=== PATIENT | female | born 1970 | race Caucasian/White ===

== ENCOUNTER 2017-05-11 17:04 | Emergency (ER) | payer SELFPAY ==
--- NOTE | 2017-05-11 17:11 | EDM.PDOC ---
ED HPI GENERAL MEDICAL PROBLEM - General Chief Complaint: Upper Extremity Injury/Pain Stated Complaint: POSSIBLE BROKEN LT FINGER Time Seen by Provider: 05/11/17 17:08 - History of Present Illness INITIAL COMMENTS - FREE TEXT/NARRATIVE: HISTORY AND PHYSICAL: History of present illness: Patient 46-year-old white female presents with concerned acute left hand injury that occurred when she fell prior to arrival she has what appears to be a gross deformity involving the fourth digit of her left hand she sustained some other minor abrasions to her extremity otherwise denies head or neck pain or trauma chest or abdominal pain or trauma or other concern Review of systems: As per history of present illness and below otherwise all systems reviewed and negative. Past medical history: As per history of present illness and as reviewed below otherwise noncontributory. Surgical history: As per history of present illness and as reviewed below otherwise noncontributory. Social history: No reported history of drug or alcohol abuse. Family history: As per history of present illness and as reviewed below otherwise noncontributory. Physical exam: HEENT: Atraumatic, normocephalic, pupils reactive, negative for conjunctival pallor or scleral icterus, mucous membranes moist, throat clear, neck supple, nontender, trachea midline. Lungs: Clear to auscultation, breath sounds equal bilaterally, chest nontender. Heart: S1S2, regular, negative for clicks, rubs, or JVD. Abdomen: Soft, nondistended, nontender. Negative for masses or hepatosplenomegaly. Negative for costovertebral tenderness. Pelvis: Stable nontender. Genitourinary: Deferred. Rectal: Deferred. Extremities: Patient has multiple abrasions to her left hand and a ulnar deviation of the fourth digit of her left hand with limited range of motion secondary to pain Neuro: Awake, alert, oriented. Cranial nerves II through XII unremarkable. Cerebellum unremarkable. Motor and sensory unremarkable throughout. Exam nonfocal. Diagnostics: X-ray left hand Therapeutics: To be determined Impression: #1 observation status post fall #2 acute left hand injury Definitive disposition and diagnosis as appropriate pending reevaluation and review of above. 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: Musculoskeletal History: Reports: Fracture Neurological History: Reports: Brain Injury Psychiatric History: Reports: Anxiety, Depression - Infectious Disease History Infectious Disease History: Reports: Chicken Pox - Past Surgical History Female Surgical History: Reports: Breast Biopsy, Hysterectomy, Tubal Ligation Social & Family History - Family History Family Medical History: Noncontributory - Tobacco Use Smoking Status *Q: Never Smoker Second Hand Smoke Exposure: No - Caffeine Use Caffeine Use: Reports: None - Alcohol Use Days Per Week of Alcohol Use: 0 Number of Drinks Per Day: 0 Total Drinks Per Week: 0 - Recreational Drug Use Recreational Drug Use: No Drug Use in Last 12 Months: No Review of Systems - Review of Systems Review Of Systems: ROS reveals no pertinent complaints other than HPI. ED EXAM, GENERAL - Physical Exam Exam: See Below (See dictation) Course - Vital Signs Text/Narrative:: Patient's fracture dislocation that was noted on initial x-ray was reduced and splinted status post reduction there is markedly improved alignment neurovascular exams unremarkable I discussed with patient the need for follow- up with the hand surgery [facility] she will be given referral and to call for appointment splint as directed hydrocodone as prescribed and return as needed as discussed I discussed with her also that my impression is with the greater than 25% involvement of the articular surface that this may likely need surgery Last Recorded V/S: Last Vital Signs Temp 36.1 C 05/11/17 17:15 Pulse 100 05/11/17 17:15 Resp 20 05/11/17 17:15 BP 139/87 05/11/17 17:15 Pulse Ox 98 05/11/17 17:15 - Orders/Labs/Meds Orders: Active Orders 24 hr Category Date Time Status Hand 2V Lt [CR] Stat Exams 05/11/17 17:09 Taken Hand 2V Lt [CR] Stat Exams 05/11/17 17:46 Taken Meds: Medications Discontinued Medications Generic Name Dose Route Start Last Admin Trade Name Freq PRN Reason Stop Dose Admin Hydromorphone HCl 1 mg 05/11/17 17:45 Dilaudid IM 05/11/17 17:46 ONETIME ONE Ondansetron HCl 4 mg 05/11/17 17:45 Zofran Odt PO 05/11/17 17:46 ONETIME ONE Departure - Departure Time of Disposition: 18:04 Disposition: Home, Self-Care 01 Condition: Good Clinical Impression: Hand fracture - Discharge Information Forms: ED Department Discharge - My Orders Last 24 Hours: My Active Orders 05/11/17 17:09 Hand 2V Lt [CR] Stat 05/11/17 17:46 Hand 2V Lt [CR] Stat - Assessment/Plan Last 24 Hours: My Active Orders 05/11/17 17:09 Hand 2V Lt [CR] Stat 05/11/17 17:46 Hand 2V Lt [CR] Stat
[2017-05-11 17:21] VITALS: BP 139/87
[2017-05-11] MEDS ORDERED: HYDROmorphone 2 MG/ML Syringe IM ONE (17:45)
[2017-05-11] MEDS ORDERED: Ondansetron 4 MG Tab.DIS PO ONE (17:45)
--- NOTE | 2017-05-12 15:35 | CR ---
EXAM DATE: 05/11/17 PATIENT'S AGE: 46 Patient: LATOYA HAYDEN Facility: [place], [place] Site . Site : 1970 Study: XRay Extremity Left HAND [id number]/28/2017 5:32:56 PM Ordering Physician: Alejandro Mercer Final Report: Indication: Trauma and pain Technique: Left hand 3 views Comparison: None Findings/Impression: Bones: Acute fracture is present in the base of the proximal phalanx in the 4th finger. The fracture is markedly angulated and may be dislocated at the joint. No other osseous abnormality. Joint spaces: Unremarkable. Soft tissues: Unremarkable. Dictated by Alexy Mora MD @ May 11 2017 6:08PM (Electronic Signature) Report Signed by Proxy. ANNABEL
--- NOTE | 2017-05-12 15:36 | CR ---
EXAM DATE: 05/11/17 PATIENT'S AGE: 46 Patient: LATOYA HAYDEN Facility: [place], [place] Site . Site : 1970 Study: XRay Extremity Left HAND [id number]/28/2017 6:02:03 PM Ordering Physician: Alejandro Mercer Final Report: Indication: Post reduction. Technique: Left hand 2 views. Comparison: May 11, 2017 at 1721 hours. Impression: The fracture has been successfully reduced in the base of the proximal phalanx in the 4th finger. Alignment is near anatomic. No new abnormality. Dictated by Alexy Mora MD @ May 11 2017 6:09PM (Electronic Signature) Report Signed by Proxy. ANNABEL
== END 2017-05-11 18:25 | disposition home or self-care (01) ==
LOC: MW.ED 17:04
DX: S62.615A Displaced fracture of proximal phalanx of left ring finger, initial encounter for closed fracture (principal); F32.9 Major depressive disorder, single episode, unspecified; Z88.0 Allergy status to penicillin; W19.XXXA Unspecified fall, initial encounter
CPT/HCPCS: 29130; 73120; 96372; 99283; A4566; A9270; J1170; 99284

== ENCOUNTER 2019-07-31 17:04 | Emergency (ER) | payer SELFPAY ==
[2019-07-31 17:41] VITALS: BP 141/96; PULSE 112
--- NOTE | 2019-07-31 17:57 | EDM.PDOC ---
ED HPI GENERAL MEDICAL PROBLEM - General Chief Complaint: Respiratory Problem Stated Complaint: FEVER Time Seen by Provider: 07/31/19 17:57 Source of Information: Reports: Patient History Limitations: Reports: No Limitations - History of Present Illness INITIAL COMMENTS - FREE TEXT/NARRATIVE: HISTORY AND PHYSICAL: History of present illness: Patient is a 48-year-old female presents to the ED with concern of cough and shortness of breath x 3 days. She reports subjective fevers and sore throat. Denies chest pain, nausea, vomiting, diarrhea, abdominal pain. Patient denies recent travel or known sick contacts. 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 Review of systems: As per history of present illness and below otherwise all systems reviewed and negative. Past medical history: As per history of present illness and as reviewed below otherwise noncontributory. Surgical history: As per history of present illness and as reviewed below otherwise noncontributory. Social history: No reported history of drug or alcohol abuse. Family history: As per history of present illness and as reviewed below otherwise noncontributory. Physical exam: General: Patient sitting comfortably in no acute distress and nontoxic appearing HEENT: Atraumatic, normocephalic, pupils reactive, negative for conjunctival pallor or scleral icterus, mucous membranes moist, throat clear, neck supple, nontender, trachea midline. No meningeal signs. Lungs: Clear to auscultation, breath sounds equal bilaterally, chest nontender. Heart: S1S2, regular, negative for clicks, rubs, or overt murmur. Abdomen: Soft, nondistended, nontender. Negative for masses or hepatosplenomegaly. Negative for costovertebral tenderness. No rigidity, rebound , guarding. Pelvis: Stable nontender. Genitourinary: Deferred. Rectal: Deferred. Extremities: Atraumatic, negative for cords or calf pain. Neurovascular unremarkable. Neuro: Awake, alert, oriented. Cranial nerves II through XII unremarkable. Cerebellum unremarkable. Motor and sensory unremarkable throughout. Exam nonfocal. Notes: Diagnostics: Influenza, rapid strep, COVID-19 Therapeutics: none Prescriptions: Ventolin inhaler Impression: URI Plan: Please self quarantine at home until you receive results of your COVID-19 testing Use inhaler as instructed Follow up with primary care provider Return to ED as needed as discussed Definitive disposition and diagnosis as appropriate pending reevaluation and review of above. 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: Musculoskeletal History: Reports: Fracture Other Musculoskeletal History: bilateral broken elbows Neurological History: Reports: Brain Injury Psychiatric History: Reports: Anxiety, Depression - Infectious Disease History Infectious Disease History: Reports: None - Past Surgical History HEENT Surgical History: Reports: Adenoidectomy, Tonsillectomy GI Surgical History: Reports: Appendectomy, Cholecystectomy Female Surgical History: Reports: Breast Biopsy, Hysterectomy, Tubal Ligation Musculoskeletal Surgical History: Reports: Shoulder Surgery, Other (See Below) Other Musculoskeletal Surgeries/Procedures:: Bilateral knee surgery Social & Family History - Family History Family Medical History: Noncontributory - Tobacco Use Smoking Status *Q: Never Smoker - Caffeine Use Caffeine Use: Reports: None Caffeine Use Comment: 2 cups/day - Recreational Drug Use Recreational Drug Use: No ED ROS GENERAL - Review of Systems Review Of Systems: Comprehensive ROS is negative, except as noted in HPI. ED EXAM, GENERAL - Physical Exam Exam: See Below (see dictation) Course - Vital Signs Last Recorded V/S: Last Vital Signs Temp 97.7 F 07/31/19 17:29 Pulse 112 H 07/31/19 17:29 Resp 18 07/31/19 17:29 BP 141/96 H 07/31/19 17:29 Pulse Ox 98 07/31/19 17:29 - Orders/Labs/Meds Orders: Active Orders 24 hr Category Date Time Status CORONAVIRUS (COVID-19) PCR [MREF] Stat Lab 07/31/19 17:15 Received CULTURE STREP A CONFIRMATION [RM] Stat Lab 07/31/19 17:15 Results STREP SCRN A RAPID W CULT CONF [RM] Stat Lab 07/31/19 17:15 Results Isolation [COMM] Routine Oth 07/31/19 17:45 Active Departure - Departure Time of Disposition: 18:25 Disposition: Home, Self-Care 01 Condition: Good Clinical Impression: URI (upper respiratory infection) - Discharge Information Prescriptions: Albuterol [Ventolin HFA] 1 puff INH Q4H #1 inhaler Instructions: Upper Respiratory Infection, Adult, [id number] Referrals: PCP,None [Primary Care Provider] - Forms: ED Department Discharge Additional Instructions: The following information is given to patients seen in the emergency department who are being discharged to home. This information is to outline your options for follow-up care. We provide all patients seen in our emergency department with a follow-up referral. The need for follow-up, as well as the timing and circumstances, are variable depending upon the specifics of your emergency department visit. If you don't have a primary care physician on staff, we will provide you with a referral. We always advise you to contact your personal physician following an emergency department visit to inform them of the circumstance of the visit and for follow-up with them and/or the need for any referrals to a consulting specialist. The emergency department will also refer you to a specialist when appropriate. This referral assures that you have the opportunity for follow-up care with a specialist. All of these measure are taken in an effort to provide you with optimal care, which includes your follow-up. Under all circumstances we always encourage you to contact your private physician who remains a resource for coordinating your care. When calling for follow-up care, please make the office aware that this follow-up is from your recent emergency room visit. If for any reason you are refused follow-up, please contact the [facility] Emergency Department at and asked to speak to the emergency department charge nurse. [facility] [address] [place] [address] [id number] [address] [id number] Please self quarantine at home until you receive results of your COVID-19 testing Use inhaler as instructed Follow up with primary care provider Return to ED as needed as discussed Sepsis Event Note - Evaluation Sepsis Screening Result: Possible Sepsis Risk - Focused Exam Date Exam was Performed: 08/01/19 Time Exam was Performed: 10:26 - My Orders Last 24 Hours: My Active Orders 07/31/19 17:15 CORONAVIRUS (COVID-19) PCR [MREF] Stat CULTURE STREP A CONFIRMATION [RM] Stat STREP SCRN A RAPID W CULT CONF [RM] Stat 07/31/19 17:45 Isolation [COMM] Routine - Assessment/Plan Last 24 Hours: My Active Orders 07/31/19 17:15 CORONAVIRUS (COVID-19) PCR [MREF] Stat CULTURE STREP A CONFIRMATION [RM] Stat STREP SCRN A RAPID W CULT CONF [RM] Stat 07/31/19 17:45 Isolation [COMM] Routine
--- NOTE | 2019-07-31 18:06 | CR ---
Chest: Portable view of the chest were obtained. Comparison: Prior chest x-ray of 07/30/19. Heart size and mediastinum are normal. Lungs are clear with no acute parenchymal change. Surgical clips are noted from prior cholecystectomy. Old left clavicle fracture is seen which appears healed. Impression: 1. Nothing acute is appreciated on portable chest x-ray. Diagnostic code #2 Study was dictated in MDT
== END 2019-07-31 19:12 | disposition home or self-care (01) ==
LOC: MW.ED 17:04
DX: J06.9 Acute upper respiratory infection, unspecified (principal); Z88.0 Allergy status to penicillin
CPT/HCPCS: 71045; 87081; 87804; 87880; 99283; U0001

== ENCOUNTER 2019-08-06 15:45 | Emergency (ER) | payer SELFPAY ==
[2019-08-06] MEDS ORDERED: methylPREDNISolone Sodium Succinate 125 MG/2 ML SDV IM ONE (16:17)
[2019-08-06] MEDS ORDERED: Albuterol/Ipratropium 3.0-0.5 MG/3 ML Neb Soln NEB ONE (16:17)
--- NOTE | 2019-08-06 16:23 | EDM.PDOC ---
ED HPI GENERAL MEDICAL PROBLEM - General Chief Complaint: Respiratory Problem Stated Complaint: breathing problem Time Seen by Provider: 08/06/19 15:46 Source of Information: Reports: Patient History Limitations: Reports: No Limitations - History of Present Illness INITIAL COMMENTS - FREE TEXT/NARRATIVE: HISTORY AND PHYSICAL: History of present illness: Patient is a 48-year-old female who presents to the ED today with concern of feeling short of breath over the past 2 to 3 days. Patient states she was seen in the ED a few days ago and was tested for influenza, COV-ID 19, and strep which were all negative. Patient states at that time she had a cough and sore throat but states that now over the past 2 days she feels more short of breath. Patient states she feels as if she needs to take a big deep breath in in order to help her symptoms. Patient states she did used to smoke until 3 days ago due to feeling short of breath. Patient has a history of tubal ligation. Patient denies fever, chills, chest pain. Denies headache, neck stiff ness, change in vision, syncope, or near syncope. Denies nausea, vomiting, abdominal pain, diarrhea, constipation, or dysuria. Has not noted any blood in urine or stool. Patient has been eating and drinking appropriately. Review of systems: As per history of present illness and below otherwise all systems reviewed and negative. Past medical history: As per history of present illness and as reviewed below otherwise noncontributory. Surgical history: As per history of present illness and as reviewed below otherwise noncontributory. Social history: See social history for further information Family history: As per history of present illness and as reviewed below otherwise noncontributory. Physical exam: General: Patient is alert, oriented, and in no acute distress. Patient sitting comfortably on exam table. HEENT: Atraumatic, normocephalic, pupils equal and reactive bilaterally, negative for conjunctival pallor or scleral icterus, mucous membranes moist, TMs normal bilaterally, throat clear, neck supple, nontender, trachea midline. No drooling or trismus noted. No meningeal signs. No hot potato voice noted. Lungs: Patient speaking clearly without breathlessness, no wheezing or stridor, no accessory muscle use or respiratory distress. Auscultation deferred due to current COV-ID 19 outbreak. Heart: Auscultation deferred due to current COV-ID 19 outbreak. Abdomen: Soft, nondistended, nontender. Negative for masses or hepatosplenomegaly. Negative for costovertebral tenderness. Pelvis: Stable nontender. Genitourinary: Deferred. Rectal: Deferred. Skin: Intact, warm, dry. No lesions or rashes noted. Extremities: Atraumatic, negative for cords or calf pain. Neurovascular unremarkable. Neuro: Awake, alert, oriented. Cranial nerves II through XII unremarkable. Cerebellum unremarkable. Motor and sensory unremarkable throughout. Exam nonfocal. Notes: Ambulatory sats 99%. Tachycardia improved with 2L of NS. Patient states she does have inhaler for use at home and states treatment today helped improve symptoms. Discussed full precautions and need for complete self isolation until she has received a call about COV-ID 19 testing results. Voices understanding and is agreeable to plan of care. Denies any further questions or concerns at this time. Diagnostics: EKG, CBC, CMP, UA, lipase, troponin, chest x-ray, ddimer, ang chest ct Therapeutics: Duoneb, Solumedrol Prescription: Azithromycin Impression: Atypical pneumonia r/o COV-ID 19 Plan: 1. Self isolate until you have a call back in regards to COV-ID 19. Use at home inhaler as prescribed to you as needed for symptomatic relief. 2. Follow-up with a primary care provider as discussed. Return to the ED as needed and as discussed. Definitive disposition and diagnosis as appropriate pending reevaluation and review of above. 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: Musculoskeletal History: Reports: Fracture Other Musculoskeletal History: bilateral broken elbows Neurological History: Reports: Brain Injury Psychiatric History: Reports: Anxiety, Depression - Infectious Disease History Infectious Disease History: Reports: Chicken Pox - Past Surgical History HEENT Surgical History: Reports: Adenoidectomy, Tonsillectomy GI Surgical History: Reports: Appendectomy, Cholecystectomy Female Surgical History: Reports: Breast Biopsy, Hysterectomy, Tubal Ligation Musculoskeletal Surgical History: Reports: Shoulder Surgery, Other (See Below) Other Musculoskeletal Surgeries/Procedures:: Bilateral knee surgery Social & Family History - Family History Family Medical History: Noncontributory - Tobacco Use Smoking Status *Q: Former Smoker Used Tobacco, but Quit: Yes Month/Year Tobacco Last Used: 2019 - Caffeine Use Caffeine Use: Reports: None Caffeine Use Comment: 2 cups/day - Recreational Drug Use Recreational Drug Use: No ED ROS GENERAL - Review of Systems Review Of Systems: Comprehensive ROS is negative, except as noted in HPI. ED EXAM, GENERAL - Physical Exam Exam: See Below (see dictation) Course - Vital Signs Last Recorded V/S: Last Vital Signs Temp 98.4 F 08/06/19 18:21 Pulse 107 H 08/06/19 18:21 Resp 18 08/06/19 18:21 BP 132/95 H 08/06/19 18:21 Pulse Ox 99 08/06/19 18:21 - Orders/Labs/Meds Orders: Active Orders 24 hr Category Date Time Status EKG Documentation Completion [RC] STAT Care 08/06/19 16:16 Active RT Aerosol Therapy [RC] ASDIRECTED Care 08/06/19 16:17 Active CORONAVIRUS COVID-19 PCR PHL [MREF] Stat Lab 08/06/19 19:13 Ordered Labs: Laboratory Tests 08/06/19 08/06/19 08/06/19 Range/Units 16:32 16:32 16:32 WBC 8.03 (4.0-11.0) K/uL RBC 4.28 L (4.30-5.90) M/uL Hgb 14.0 (12.0-16.0) g/dL Hct 41.2 (36.0-46.0) % MCV 96.3 (80.0-98.0) fL MCH 32.7 H (27.0-32.0) pg MCHC 34.0 (31.0-37.0) g/dL RDW Std Deviation 55.0 (28.0-62.0) fl RDW Coeff of Valorie 16 H (11.0-15.0) % Plt Count 192 (150-400) K/uL MPV 9.60 (7.40-12.00) fL Neut % (Auto) 63.5 (48.0-80.0) % Lymph % (Auto) 22.5 (16.0-40.0) % [place] % (Auto) 13.8 (0.0-15.0) % Eos % (Auto) 0.0 (0.0-7.0) % Baso % (Auto) 0.2 (0.0-1.5) % Neut # (Auto) 5.1 (1.4-5.7) K/uL Lymph # (Auto) 1.8 (0.6-2.4) K/uL [place] # (Auto) 1.1 H (0.0-0.8) K/uL Eos # (Auto) 0.0 (0.0-0.7) K/uL Baso # (Auto) 0.0 (0.0-0.1) K/uL Nucleated RBC % 0.0 /100WBC Nucleated RBCs # 0 K/uL D-Dimer, Quantitative 0.43 (0.0-0.50) mg/L FEU Sodium 139 (136-145) mmol/L Potassium 3.5 (3.5-5.1) mmol/L Chloride 103 (98-107) mmol/L Carbon Dioxide 22.2 (21.0-32.0) mmol/L BUN 13 (7.0-18.0) mg/dL Creatinine 0.7 (0.6-1.0) mg/dL Est Cr Clr Drug Dosing 92.90 mL/min Estimated GFR (MDRD) > 60.0 ml/min Glucose 103 (74-106) mg/dL Calcium 8.2 L (8.5-10.1) mg/dL Total Bilirubin 0.4 (0.2-1.0) mg/dL AST 66 H (15-37) IU/L ALT 48 (14-63) IU/L Alkaline Phosphatase 112 (46-116) U/L Troponin I < 0.050 (0.000-0.056) ng/mL Total Protein 7.9 (6.4-8.2) g/dL Albumin 3.0 L (3.4-5.0) g/dL Globulin 4.9 H (2.6-4.0) g/dL Albumin/Globulin Ratio 0.6 L (0.9-1.6) Lipase 157 (73-393) U/L Urine Color Urine Appearance Urine pH (5.0-8.0) Ur Specific [place] (1.001-1.035) Urine Protein (NEGATIVE) mg/dL Urine Glucose (UA) (NEGATIVE) mg/dL Urine Ketones (NEGATIVE) mg/dL Urine Occult Blood (NEGATIVE) Urine Nitrite (NEGATIVE) Urine Bilirubin (NEGATIVE) Urine Urobilinogen (<2.0) EU/dL Ur Leukocyte Esterase (NEGATIVE) Urine Opiates Screen (NEGATIVE) Ur Oxycodone Screen (NEGATIVE) Urine Methadone Screen (NEGATIVE) Ur Barbiturates Screen (NEGATIVE) Ur Phencyclidine Scrn (NEGATIVE) Ur Amphetamine Screen (NEGATIVE) U Methamphetamines Scrn (NEGATIVE) U Benzodiazepines Scrn (NEGATIVE) U Cocaine Metab Screen (NEGATIVE) U Marijuana (THC) Screen (NEGATIVE) 08/06/19 08/06/19 Range/Units 17:20 17:20 WBC (4.0-11.0) K/uL RBC (4.30-5.90) M/uL Hgb (12.0-16.0) g/dL Hct (36.0-46.0) % MCV (80.0-98.0) fL MCH (27.0-32.0) pg MCHC (31.0-37.0) g/dL RDW Std Deviation (28.0-62.0) fl RDW Coeff of Valorie (11.0-15.0) % Plt Count (150-400) K/uL MPV (7.40-12.00) fL Neut % (Auto) (48.0-80.0) % Lymph % (Auto) (16.0-40.0) % [place] % (Auto) (0.0-15.0) % Eos % (Auto) (0.0-7.0) % Baso % (Auto) (0.0-1.5) % Neut # (Auto) (1.4-5.7) K/uL Lymph # (Auto) (0.6-2.4) K/uL [place] # (Auto) (0.0-0.8) K/uL Eos # (Auto) (0.0-0.7) K/uL Baso # (Auto) (0.0-0.1) K/uL Nucleated RBC % /100WBC Nucleated RBCs # K/uL D-Dimer, Quantitative (0.0-0.50) mg/L FEU Sodium (136-145) mmol/L Potassium (3.5-5.1) mmol/L Chloride (98-107) mmol/L Carbon Dioxide (21.0-32.0) mmol/L BUN (7.0-18.0) mg/dL Creatinine (0.6-1.0) mg/dL Est Cr Clr Drug Dosing mL/min Estimated GFR (MDRD) ml/min Glucose (74-106) mg/dL Calcium (8.5-10.1) mg/dL Total Bilirubin (0.2-1.0) mg/dL AST (15-37) IU/L ALT (14-63) IU/L Alkaline Phosphatase (46-116) U/L Troponin I (0.000-0.056) ng/mL Total Protein (6.4-8.2) g/dL Albumin (3.4-5.0) g/dL Globulin (2.6-4.0) g/dL Albumin/Globulin Ratio (0.9-1.6) Lipase (73-393) U/L Urine Color YELLOW Urine Appearance CLEAR Urine pH 6.0 (5.0-8.0) Ur Specific [place] <= 1.005 (1.001-1.035) Urine Protein NEGATIVE (NEGATIVE) mg/dL Urine Glucose (UA) NEGATIVE (NEGATIVE) mg/dL Urine Ketones NEGATIVE (NEGATIVE) mg/dL Urine Occult Blood NEGATIVE (NEGATIVE) Urine Nitrite NEGATIVE (NEGATIVE) Urine Bilirubin NEGATIVE (NEGATIVE) Urine Urobilinogen 0.2 (<2.0) EU/dL Ur Leukocyte Esterase NEGATIVE (NEGATIVE) Urine Opiates Screen NEGATIVE (NEGATIVE) Ur Oxycodone Screen NEGATIVE (NEGATIVE) Urine Methadone Screen NEGATIVE (NEGATIVE) Ur Barbiturates Screen NEGATIVE (NEGATIVE) Ur Phencyclidine Scrn NEGATIVE (NEGATIVE) Ur Amphetamine Screen NEGATIVE (NEGATIVE) U Methamphetamines Scrn NEGATIVE (NEGATIVE) U Benzodiazepines Scrn NEGATIVE (NEGATIVE) U Cocaine Metab Screen NEGATIVE (NEGATIVE) U Marijuana (THC) Screen NEGATIVE (NEGATIVE) Meds: Medications Discontinued Medications Generic Name Dose Route Start Last Admin Trade Name Freq PRN Reason Stop Dose Admin Albuterol/Ipratropium 3 ml 08/06/19 16:17 08/06/19 16:36 Duoneb 3.0-0.5 Mg/3 Ml NEB 08/06/19 16:18 3 ml ONETIME ONE Administration Sodium Chloride 1,000 mls @ 999 mls/hr 08/06/19 16:24 08/06/19 16:38 Normal Saline IV 08/06/19 17:24 999 mls/hr STAT ONE Administration Sodium Chloride 1,000 mls @ 999 mls/hr 08/06/19 17:29 08/06/19 18:19 Normal Saline IV 08/06/19 18:29 999 mls/hr STAT ONE Administration Iopamidol 50 ml 08/06/19 18:16 08/06/19 18:17 Isovue Multipack-370 (76%) IVPUSH 08/06/19 18:17 50 ml ONETIME STA Administration Methylprednisolone Sodium Succinate 125 mg 08/06/19 16:17 08/06/19 16:27 Solu-Medrol IM 08/06/19 16:18 Not Given ONETIME ONE Methylprednisolone Sodium Succinate 125 mg 08/06/19 16:24 08/06/19 16:38 Solu-Medrol IVPUSH 08/06/19 16:25 125 mg ONETIME ONE Administration Departure - Departure Time of Disposition: 19:52 Disposition: Home, Self-Care 01 Clinical Impression: Atypical pneumonia - Discharge Information Instructions: Community-Acquired Pneumonia, Adult, [id number] Referrals: PCP,None [Primary Care Provider] - Forms: ED Department Discharge Additional Instructions: The following information is given to patients seen in the emergency department who are being discharged to home. This information is to outline your options for follow-up care. We provide all patients seen in our emergency department with a follow-up referral. The need for follow-up, as well as the timing and circumstances, are variable depending upon the specifics of your emergency department visit. If you don't have a primary care physician on staff, we will provide you with a referral. We always advise you to contact your personal physician following an emergency department visit to inform them of the circumstance of the visit and for follow-up with them and/or the need for any referrals to a consulting specialist. The emergency department will also refer you to a specialist when appropriate. This referral assures that you have the opportunity for follow-up care with a specialist. All of these measure are taken in an effort to provide you with optimal care, which includes your follow-up. Under all circumstances we always encourage you to contact your private physician who remains a resource for coordinating your care. When calling for follow-up care, please make the office aware that this follow-up is from your recent emergency room visit. If for any reason you are refused follow-up, please contact the [facility] Emergency Department at and asked to speak to the emergency department charge nurse. [facility] [address] [place] [address] [facility] [address] [place] [address] 1. Self isolate until you have a call back in regards to COV-ID 19. Use at home inhaler as prescribed to you as needed for symptomatic relief. 2. Follow-up with a primary care provider as discussed. Return to the ED as needed and as discussed. Sepsis Event Note - Evaluation Sepsis Screening Result: No Definite Risk - Focused Exam Vital Signs: Vital Signs Temp Pulse Resp BP Pulse Ox 08/06/19 18:21 98.4 F 107 H 18 132/95 H 99 08/06/19 17:18 116 H 18 134/91 H 99 08/06/19 15:50 96.8 F L 113 H 18 109/87 99 Date Exam was Performed: 08/06/19 Time Exam was Performed: 19:45 - My Orders Last 24 Hours: My Active Orders 08/06/19 16:16 EKG Documentation Completion [RC] STAT 08/06/19 16:17 RT Aerosol Therapy [RC] ASDIRECTED 08/06/19 19:13 CORONAVIRUS COVID-19 PCR PHL [MREF] Stat - Assessment/Plan Last 24 Hours: My Active Orders 08/06/19 16:16 EKG Documentation Completion [RC] STAT 08/06/19 16:17 RT Aerosol Therapy [RC] ASDIRECTED 08/06/19 19:13 CORONAVIRUS COVID-19 PCR PHL [MREF] Stat
--- NOTE | 2019-08-06 16:23 | CR ---
Chest: 2 views of the chest were obtained. Comparison: Prior chest x-ray of 07/31/19. Heart size and mediastinum are normal. Lungs are clear with no acute parenchymal change. Bony structures are unremarkable. Prior cholecystectomy is noted. Impression: 1. Nothing acute is seen on 2 view chest x-ray. Diagnostic code #2 This report was dictated in MDT
[2019-08-06] MEDS ORDERED: Sodium Chloride 0.9% 1,000 ML IV ONE ×2 (16:24→17:29)
[2019-08-06] MEDS ORDERED: methylPREDNISolone Sodium Succinate 125 MG/2 ML SDV IVPUSH ONE (16:24)
[2019-08-06 17:21] LABS: BLOOD UREA NITROGEN,BUN 13 mg/dL (7.0-18.0); CARBON DIOXIDE,CO2 22.2 mmol/L (21.0-32.0); CHLORIDE,CL 103 mmol/L (98-107); GLUCOSE RANDOM 103 mg/dL (74-106); LIPASE 157 U/L (73-393); POTASSIUM,K 3.5 mmol/L (3.5-5.1); SODIUM,NA 139 mmol/L (136-145)
[2019-08-06] MEDS ORDERED: Iopamidol 755 MG/ML 500 ML Multipack Bottle IVPUSH STA (18:16)
--- NOTE | 2019-08-06 18:58 | CT ---
CT pulmonary angiogram Technique: Multiple axial sections were obtained were obtained through the chest. Intravenous contrast was utilized. Study has been performed as a pulmonary angiogram protocol. Findings: Pulmonary arteries are well opacified. No filling defects are seen to indicate pulmonary embolism. Small hiatal hernia is noted. Fatty infiltration is seen within the liver. No pericardial thickening is seen. Aorta shows no aneurysm. No axillary adenopathy is seen. Lung window settings were reviewed. Patchy areas of groundglass appearance are seen within the lungs. Findings are worse within the left lower lung. No alveolar type changes otherwise seen. No pleural effusions are noted. Bone window settings were reviewed Impression: 1. Hazy groundglass appearance within both lungs, worse within the left base. These findings can be seen with COVID-19 infection as well as nonspecific bronchitis. 2. No findings of pulmonary embolism. 3. Small hiatal hernia and fatty infiltration within the liver. Diagnostic code #5 This report was dictated in MDT
[2019-08-06 20:13] VITALS: BP 128/93; PULSE 104
== END 2019-08-06 20:00 | disposition home or self-care (01) ==
LOC: MW.ED 15:45
DX: J18.9 Pneumonia, unspecified organism (principal); Z87.891 Personal history of nicotine dependence; Z88.0 Allergy status to penicillin
CPT/HCPCS: 71046; 71275; 80053; 80305; 81003; 83690; 84484; 85025; 85379; 93005; 94640; 96361; 96374; 99285; J2930; J7030; Q9967; U0001; J7620-GY

== ENCOUNTER 2019-08-21 22:16 | Emergency (ER) | payer OTHER ==
--- NOTE | 2019-08-21 23:12 | EDM.PDOC ---
ED HPI GENERAL MEDICAL PROBLEM - General Chief Complaint: Gastrointestinal Problem Stated Complaint: CHEST PAIN SOB Time Seen by Provider: 08/21/19 22:20 Source of Information: Reports: Patient - History of Present Illness INITIAL COMMENTS - FREE TEXT/NARRATIVE: The patient is a 48-year-old female who presents to the ER because she states that for 22 days, she has felt like her heart was racing and she has been short of breath. She states that she has been here for this several times. She states that she had a work-up including a CT scan which showed that she had "groundglass opacities" and was given a prescription for Zithromax. She has taken it but she is also been experiencing intermittent nausea and vomiting for the past few days. The patient also states that she has been extremely tired and fatigue and cannot stop sleeping and feels like she is going to "". She not have any chest pain, no syncope or near syncope, no hemoptysis, no diarrhea , no other acute complaints. 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: Musculoskeletal History: Reports: Fracture Other Musculoskeletal History: bilateral broken elbows Neurological History: Reports: Brain Injury Psychiatric History: Reports: Anxiety, Depression Endocrine/Metabolic History: Reports: None 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 Hematologic History: Reports: None Immunologic History: Reports: None Oncologic (Cancer) History: Reports: None Dermatologic History: Reports: None - Infectious Disease History Infectious Disease History: Reports: None - Past Surgical History Head Surgeries/Procedures: Reports: None HEENT Surgical History: Reports: Adenoidectomy, Tonsillectomy GI Surgical History: Reports: Appendectomy, Cholecystectomy Female Surgical History: Reports: Breast Biopsy, Hysterectomy, Tubal Ligation Musculoskeletal Surgical History: Reports: Shoulder Surgery, Other (See Below) Other Musculoskeletal Surgeries/Procedures:: Bilateral knee surgery Social & Family History - Family History Family Medical History: Noncontributory - Tobacco Use Smoking Status *Q: Former Smoker Used Tobacco, but Quit: No - Caffeine Use Caffeine Use: Reports: None Caffeine Use Comment: 2 cups/day - Recreational Drug Use Recreational Drug Use: No ED ROS GENERAL - Review of Systems Review Of Systems: See Below (Positive for tachycardia, positive for shortness of breath, positive for fatigue, positive for nausea and vomiting, all other Positives and pertinent negatives as per HPI. All other pertinent systems were reviewed and are negative) ED EXAM, GI/ABD - Physical Exam Exam: See Below Text/Narrative:: Constitutional: No acute distress, Non-toxic appearance, disheveled HEENT.: Normocephalic, Atraumatic, PERRL, EOMI, External ears are atraumatic, nares are patent without epistaxis Neck: Normal range of motion, Trachea Midline, No stridor Respiratory.: No respiratory distress, No tachypnea, Lungs Clear to Auscultation bilaterally without wheezes, rales, or rhonchi Cardiovascular.: Tachycardic rate and Rhythm without murmurs, rubs, or gallops , good peripheral perfusion GI: Abdomen soft and non tender, no masses, no rebound, rigidity, or guarding Genital Urinary: Deferred Musculoskeletal: Good range of motion. All 4 extremities present and atraumatic , no edema Back: Full Range of Motion Skin: Warm, Dry, Color is ethnicity appropriate, No acute rash. Lymphatic: No lymphadenopathy noted Neurological: Alert, Awake and oriented x 3, No focal deficits noted appreciate , GCS 15 Psych: Affect, Judgement, mood normal Course - Vital Signs Text/Narrative:: Clinically the patient does not appear ill. She is slightly tachycardic but her blood pressure is stable, her lungs are clear, she is not tachypneic, she has no dyspneic speech, she has excellent skin color, excellent oxygenation, etc. Records were reviewed and on Jul 29 the patient was seen here and had a negative chest x-ray. The patient had returned on Aug 05 and had a more extensive work-up which included a CT scan of the chest which was negative for pulmonary emboli, pleural effusions, but did have bilateral groundglass opacities as was discussed. The appearance could be similar in Covid 19, but the patient had had that test performed and it was negative. The patient was given prescription for Zithromax as she had mentioned for an atypical pneumonia. I strongly suspect that the patient has some type of viral syndrome as some of these can last weeks. Furthermore, given that this is been ongoing for quite some time and other than some mild tachycardia the patient's vital signs are excellent, I do not believe that she need another emergency department work-up. I did stress that she follows with her primary care physician and she scoffed at me. "I don't go to doctors!". While I do feel that this is probably viral given that this has been ongoing for a few weeks I did stress that primary care physician follow-up is important. I wrote her a prescription for Zofran and the patient absconded before receiving her discharge paperwork. Last Recorded V/S: Last Vital Signs Temp 37.0 C 08/21/19 22:30 Pulse 108 H 08/21/19 22:30 Resp 20 08/21/19 22:30 BP 97/73 08/21/19 22:30 Pulse Ox 98 08/21/19 22:30 Departure - Departure Time of Disposition: 23:11 Disposition: Home, Self-Care 01 Condition: Good Clinical Impression: Viral syndrome - Discharge Information Prescriptions: Ondansetron [Zofran ODT] 4 mg PO Q4H PRN 5 Days #20 tab.dis PRN Reason: Nausea/Vomiting Instructions: Viral Illness, Adult Referrals: PCP,None [Primary Care Provider] - Forms: ED Department Discharge Additional Instructions: VIRAL SYNDROME This appears to be a viral syndrome. They are highly common and variable, causing fevers, colds, coughs, headaches, vomiting, diarrhea, etc. Antibiotics don't work on viruses, and they need to run their course. On average these last 7-10 days, depending upon the virus. There are some that even last up to several weeks. Rest, drink plenty of clear fluids, especially water. You want our urine to be clear to a light yellow. Ibuprofen 800 mg and Tylenol 1000 mg may be taken at the same time every 6 hours as needed for fevers and discomfort. Upper respiratory congestion and sore throats can be improved with cool liquids , humidifiers, cough drops with menthol, honey, tea with honey, and over-the- counter decongestants. Return to the ER if you develop difficulty breathing, or any other concerns. Sepsis Event Note - Evaluation Sepsis Screening Result: No Definite Risk - Focused Exam Vital Signs: Vital Signs Temp Pulse Resp BP Pulse Ox 08/21/19 22:30 37.0 C 108 H 20 97/73 98 Date Exam was Performed: 08/22/19 Time Exam was Performed: 01:18
== END 2019-08-21 23:20 | disposition home or self-care (01) ==
LOC: MW.ED 22:16
CPT/HCPCS: 99282; 99284

== ENCOUNTER 2019-09-05 09:52 | Emergency (ER) | payer SELFPAY ==
--- NOTE | 2019-09-05 10:16 | EDM.PDOC ---
ED HPI GENERAL MEDICAL PROBLEM - General Chief Complaint: General Stated Complaint: RESPITORY Time Seen by Provider: 09/05/19 10:13 - History of Present Illness INITIAL COMMENTS - FREE TEXT/NARRATIVE: I never saw patient!! 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: Musculoskeletal History: Reports: Fracture Other Musculoskeletal History: bilateral broken elbows Neurological History: Reports: Brain Injury Psychiatric History: Reports: Anxiety, Depression Endocrine/Metabolic History: Reports: None Insulin Pump Model and Assistant In Nursing: N/A Hematologic History: Reports: None Immunologic History: Reports: None Oncologic (Cancer) History: Reports: None Dermatologic History: Reports: None - Infectious Disease History Infectious Disease History: Reports: None - Past Surgical History Head Surgeries/Procedures: Reports: None HEENT Surgical History: Reports: Adenoidectomy, Tonsillectomy GI Surgical History: Reports: Appendectomy, Cholecystectomy Female Surgical History: Reports: Breast Biopsy, Hysterectomy, Tubal Ligation Musculoskeletal Surgical History: Reports: Shoulder Surgery, Other (See Below) Other Musculoskeletal Surgeries/Procedures:: Bilateral knee surgery Social & Family History - Family History Family Medical History: Noncontributory - Caffeine Use Caffeine Use: Reports: None Caffeine Use Comment: 2 cups/day ED ROS GENERAL - Review of Systems Review Of Systems: Unable To Obtain Reason Not Obtained: Patient left before being seen ED EXAM, GENERAL - Physical Exam Exam: Not Obtained (patient left before being seen) Reason Not Obtained: Patient left before being seen. Course - Vital Signs Text/Narrative:: This patient left without being seen. Departure - Departure Time of Disposition: 10:58 Disposition: Left Without Being Seen 07 Condition: Fair Clinical Impression: Did not wait for treatment - Discharge Information *PRESCRIPTION DRUG MONITORING PROGRAM REVIEWED*: Yes *COPY OF PRESCRIPTION DRUG MONITORING REPORT IN PATIENT JEANCARLOS: Yes Referrals: PCP,None [Primary Care Provider] - Forms: Refusal Medical Screening Sepsis Event Note - Focused Exam Date Exam was Performed: 09/06/19 Time Exam was Performed: 16:19
== END 2019-09-05 10:25 | disposition left against medical advice (07) ==
LOC: MW.ED 09:52
DX: Z53.21 Procedure and treatment not carried out due to patient leaving prior to being seen by health care provider (principal)

== ENCOUNTER 2019-09-21 10:20 | Emergency (ER) | payer OTHER ==
[2019-09-21] MEDS ORDERED: Sodium Chloride 0.9% 1,000 ML IV ONE (10:47)
[2019-09-21] MEDS ORDERED: Sodium Chloride 0.9% 2.5 ML Syringe FLUSH PRN ×2 (10:47)
[2019-09-21] MEDS ORDERED: Aspirin 81 MG Tab.Chew PO ONE (10:47)
[2019-09-21] MEDS ORDERED: Sodium Chloride 0.9% 10 ML Syringe FLUSH PRN (10:47)
--- NOTE | 2019-09-21 10:51 | EDM.PDOC ---
ED HPI GENERAL MEDICAL PROBLEM - General Chief Complaint: Respiratory Problem Stated Complaint: SOB Time Seen by Provider: 09/21/19 10:33 - History of Present Illness INITIAL COMMENTS - FREE TEXT/NARRATIVE: History of present illness: [Patient presents with dyspnea and a cough she had pneumonia a month ago and has remained short of breath since she states she is still having some fever and chills subjectively she denies any pain no leg pain or leg swelling she has no prior history of heart condition she states she has been tested for the coronavirus 4 separate times they have all been negative she was treated with a full course of antibiotics that she does not recall the name of she had a prior CT scan of her chest with groundglass opacities apparently on the read she states she continues to be short of breath and her doctor from [place] instead she needs to come in and be seen and get a new CT scan.] Review of systems: As per history of present illness and below otherwise all systems reviewed and negative. Past medical history: As per history of present illness and as reviewed below otherwise noncontributory. Surgical history: As per history of present illness and as reviewed below otherwise noncontributory. Social history: No reported history of drug or alcohol abuse. Family history: As per history of present illness and as reviewed below otherwise noncontributory. Physical exam: HEENT: Atraumatic, normocephalic, pupils reactive, negative for conjunctival pallor or scleral icterus, mucous membranes moist, throat clear, neck supple, nontender, trachea midline. Lungs: Clear to auscultation, breath sounds equal bilaterally, chest nontender. Heart: S1S2, regular, negative for clicks, rubs, or JVD. Abdomen: Soft, nondistended, nontender. Negative for masses or hepatosplenomegaly. Negative for costovertebral tenderness. Pelvis: Stable nontender. Genitourinary: Deferred. Rectal: Deferred. Extremities: Atraumatic, negative for cords or calf pain. Neurovascular unremarkable. Neuro: Awake, alert, oriented. Cranial nerves II through XII unremarkable. Cerebellum unremarkable. Motor and sensory unremarkable throughout. Exam nonfocal. Diagnostics: [] Therapeutics: [] Impression: Dyspnea [] Plan: Labs and CT Siobhan of the chest will be obtained and she will be reassessed [] Definitive disposition and diagnosis as appropriate pending reevaluation and review of above. 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: Musculoskeletal History: Reports: Fracture Other Musculoskeletal History: bilateral broken elbows Neurological History: Reports: Brain Injury Psychiatric History: Reports: Anxiety, Depression Endocrine/Metabolic History: Reports: None Insulin Pump Model and Fisheries Director: N/A Hematologic History: Reports: None Immunologic History: Reports: None Oncologic (Cancer) History: Reports: None Dermatologic History: Reports: None - Infectious Disease History Infectious Disease History: Reports: Chicken Pox - Past Surgical History Head Surgeries/Procedures: Reports: None HEENT Surgical History: Reports: Adenoidectomy, Tonsillectomy GI Surgical History: Reports: Appendectomy, Cholecystectomy Female Surgical History: Reports: Breast Biopsy, Hysterectomy, Tubal Ligation Musculoskeletal Surgical History: Reports: Shoulder Surgery, Other (See Below) Other Musculoskeletal Surgeries/Procedures:: Bilateral knee surgery Social & Family History - Family History Family Medical History: Noncontributory - Tobacco Use Smoking Status *Q: Never Smoker - Caffeine Use Caffeine Use: Reports: None Caffeine Use Comment: 2 cups/day - Alcohol Use Days Per Week of Alcohol Use: 7 Number of Drinks Per Day: 2 Total Drinks Per Week: 14 - Recreational Drug Use Recreational Drug Use: No ED ROS GENERAL - Review of Systems Review Of Systems: See Below ED EXAM, GENERAL - Physical Exam Exam: See Below EKG INTERPRETATION EKG Interpretation Comments: EKG is normal sinus rhythm with a rate of 90 bpm normal EKG normal axis no ischemic changes read and interpreted by me Course - Vital Signs Text/Narrative:: CT angiography reveals no pulmonary embolus the ground glass infiltrates are still present the study does not demonstrate any new findings. The patient has elevated transaminases and bili count which was already known I recommend she see pulmonology I am going to refer her to primary care here and normally get her an albuterol inhaler to help with her breathing. Last Recorded V/S: Last Vital Signs Temp 36.2 C 09/21/19 12:22 Pulse 89 09/21/19 12:22 Resp 16 09/21/19 12:22 BP 115/76 09/21/19 12:22 Pulse Ox 96 09/21/19 12:22 - Orders/Labs/Meds Orders: Active Orders 24 hr Category Date Time Status Cardiac Monitoring [RC] . DIRECTED Care 09/21/19 10:47 Active EKG Documentation Completion [RC] STAT Care 09/21/19 10:47 Active Pulse Oximetry [RC] ASDIRECTED Care 09/21/19 10:47 Active Sodium Chloride 0.9% [Saline Flush] Med 09/21/19 10:47 Active 10 ml FLUSH ASDIRECTED PRN Sodium Chloride 0.9% [Saline Flush] Med 09/21/19 10:47 Active 2.5 ml FLUSH ASDIRECTED PRN Sodium Chloride 0.9% [Saline Flush] Med 09/21/19 10:47 Active 2.5 ml FLUSH ASDIRECTED PRN Saline Lock Insert [OM.PC] Stat Oth 09/21/19 10:47 Ordered Medication Orders Sodium Chloride (Saline Flush) 2.5 ml FLUSH ASDIRECTED PRN PRN Reason: Keep Vein Open Last Admin: 09/21/19 11:02 Dose: 2.5 ml Sodium Chloride (Saline Flush) 10 ml FLUSH ASDIRECTED PRN PRN Reason: Keep Vein Open Last Admin: 09/21/19 11:02 Dose: 10 ml Sodium Chloride (Saline Flush) 2.5 ml FLUSH ASDIRECTED PRN PRN Reason: Keep Vein Open Last Admin: 09/21/19 11:02 Dose: 2.5 ml Labs: Laboratory Tests 09/21/19 09/21/19 09/21/19 Range/Units 10:59 10:59 10:59 WBC 5.53 (4.0-11.0) K/uL RBC 2.91 L (4.30-5.90) M/uL Hgb 10.5 L (12.0-16.0) g/dL Hct 33.3 L (36.0-46.0) % MCV 114.4 H (80.0-98.0) fL MCH 36.1 H (27.0-32.0) pg MCHC 31.5 (31.0-37.0) g/dL RDW Std Deviation 84.1 H (28.0-62.0) fl RDW Coeff of Valorie 21 H (11.0-15.0) % Plt Count 236 (150-400) K/uL MPV 10.40 (7.40-12.00) fL Add Manual Diff YES Neutrophils % (Manual) 58 (48.0-80.0) % Lymphocytes % (Manual) 29 (16.0-40.0) % Monocytes % (Manual) 11 (0.0-15.0) % Basophils % (Manual) 1 (0.0-1.5) % Myelocytes % 1 % Nucleated RBC % 0.4 /100WBC Absolute Seg Neuts 3.2 (1.4-5.7) Lymphocytes # (Manual) 1.6 (0.6-2.4) Monocytes # (Manual) 0.6 (0.0-0.8) Basophils # (Manual) 0.1 (0.0-0.1) Absolute Myelocytes 0.1 Nucleated RBCs # 0 K/uL Polychromasia 1+ SLIGHT Sodium 137 (136-145) mmol/L Potassium 3.4 L (3.5-5.1) mmol/L Chloride 99 (98-107) mmol/L Carbon Dioxide 22.1 (21.0-32.0) mmol/L BUN 2 L (7.0-18.0) mg/dL Creatinine 0.8 (0.6-1.0) mg/dL Est Cr Clr Drug Dosing 87.45 mL/min Estimated GFR (MDRD) > 60.0 ml/min Glucose 87 (74-106) mg/dL Calcium 8.2 L (8.5-10.1) mg/dL Total Bilirubin 3.6 H (0.2-1.0) mg/dL AST 419 H (15-37) IU/L ALT 105 H (14-63) IU/L Alkaline Phosphatase 158 H (46-116) U/L Troponin I < 0.050 (0.000-0.056) ng/mL B-Natriuretic Peptide 9 (<100) PG/ML Total Protein 8.7 H (6.4-8.2) g/dL Albumin 2.6 L (3.4-5.0) g/dL Globulin 6.1 H (2.6-4.0) g/dL Albumin/Globulin Ratio 0.4 L (0.9-1.6) Meds: Medications Generic Name Dose Route Start Last Admin Trade Name Eleni PRN Reason Stop Dose Admin Sodium Chloride 2.5 ml 09/21/19 10:47 09/21/19 11:02 Saline Flush FLUSH 2.5 ml ASDIRECTED PRN Administration Keep Vein Open Sodium Chloride 10 ml 09/21/19 10:47 09/21/19 11:02 Saline Flush FLUSH 10 ml ASDIRECTED PRN Administration Keep Vein Open Sodium Chloride 2.5 ml 09/21/19 10:47 09/21/19 11:02 Saline Flush FLUSH 2.5 ml ASDIRECTED PRN Administration Keep Vein Open Discontinued Medications Generic Name Dose Route Start Last Admin Trade Name Eleni PRN Reason Stop Dose Admin Aspirin 324 mg 09/21/19 10:47 09/21/19 11:01 Aspirin PO 09/21/19 10:48 324 mg ONETIME ONE Administration Sodium Chloride 1,000 mls @ 999 mls/hr 09/21/19 10:47 09/21/19 10:59 Normal Saline IV 09/21/19 11:47 999 mls/hr BOLUS ONE Administration Iopamidol 50 ml 09/21/19 12:03 09/21/19 12:05 Isovue Multipack-370 (76%) IVPUSH 09/21/19 12:04 50 ml ONETIME ONE Administration Departure - Departure Time of Disposition: 12:46 Disposition: DC/Tfer W/I Hosp To Swing 61 Clinical Impression: Dyspnea Qualifiers: Dyspnea type: shortness of breath Qualified Code(s): R06.02 - Shortness of breath; R06.00 - Dyspnea, unspecified; R06.01 - Orthopnea - Discharge Information *PRESCRIPTION DRUG MONITORING PROGRAM REVIEWED*: Not Applicable *COPY OF PRESCRIPTION DRUG MONITORING REPORT IN PATIENT JEANCARLOS: Not Applicable Instructions: Shortness of Breath, Adult, [id number] Referrals: PCP,Unknown [Primary Care Provider] - Forms: ED Department Discharge Additional Instructions: The following information is given to patients seen in the emergency department who are being discharged to home. This information is to outline your options for follow-up care. We provide all patients seen in our emergency department with a follow-up referral. The need for follow-up, as well as the timing and circumstances, are variable depending upon the specifics of your emergency department visit. If you don't have a primary care physician on staff, we will provide you with a referral. We always advise you to contact your personal physician following an emergency department visit to inform them of the circumstance of the visit and for follow-up with them and/or the need for any referrals to a consulting specialist. The emergency department will also refer you to a specialist when appropriate. This referral assures that you have the opportunity for follow-up care with a specialist. All of these measure are taken in an effort to provide you with optimal care, which includes your follow-up. Under all circumstances we always encourage you to contact your private physician who remains a resource for coordinating your care. When calling for follow-up care, please make the office aware that this follow-up is from your recent emergency room visit. If for any reason you are refused follow-up, please contact the [facility] Emergency Department at and asked to speak to the emergency department charge nurse. [facility] - Primary [facility] [address] [place] [address] [place] [phone] Sepsis Event Note - Evaluation Sepsis Screening Result: No Definite Risk - Focused Exam Vital Signs: Vital Signs Temp Pulse Resp BP Pulse Ox 09/21/19 12:22 36.2 C 89 16 115/76 96 09/21/19 11:22 36.1 C 84 17 115/76 98 09/21/19 10:31 36.1 C 100 20 109/78 98 Date Exam was Performed: 09/21/19 Time Exam was Performed: 12:45 - My Orders Last 24 Hours: My Active Orders 09/21/19 10:47 Cardiac Monitoring [RC] . DIRECTED EKG Documentation Completion [RC] STAT Pulse Oximetry [RC] ASDIRECTED Sodium Chloride 0.9% [Saline Flush] 10 ml FLUSH ASDIRECTED PRN Sodium Chloride 0.9% [Saline Flush] 2.5 ml FLUSH ASDIRECTED PRN Sodium Chloride 0.9% [Saline Flush] 2.5 ml FLUSH ASDIRECTED PRN Saline Lock Insert [OM.PC] Stat - Assessment/Plan Last 24 Hours: My Active Orders 09/21/19 10:47 Cardiac Monitoring [RC] . DIRECTED EKG Documentation Completion [RC] STAT Pulse Oximetry [RC] ASDIRECTED Sodium Chloride 0.9% [Saline Flush] 10 ml FLUSH ASDIRECTED PRN Sodium Chloride 0.9% [Saline Flush] 2.5 ml FLUSH ASDIRECTED PRN Sodium Chloride 0.9% [Saline Flush] 2.5 ml FLUSH ASDIRECTED PRN Saline Lock Insert [OM.PC] Stat
[2019-09-21 11:34] LABS: BLOOD UREA NITROGEN,BUN 2 mg/dL (7.0-18.0); CARBON DIOXIDE,CO2 22.1 mmol/L (21.0-32.0); CHLORIDE,CL 99 mmol/L (98-107); GLUCOSE RANDOM 87 mg/dL (74-106); POTASSIUM,K 3.4 mmol/L (3.5-5.1); SODIUM,NA 137 mmol/L (136-145)
[2019-09-21] MEDS ORDERED: Iopamidol 755 MG/ML 200 ML Multipack Bottle IVPUSH ONE (12:03)
--- NOTE | 2019-09-21 12:29 | CT ---
INDICATION: Dyspnea COMPARISON: none TECHNIQUE: CT volumetric acquisition was performed of the thorax during intravenous infusion of 100 cc of Isovue-370 nonionic intravenous contrast. FINDINGS: The CT images demonstrate uniform vascular enhancement within the pulmonary arteries. There are no suspicious filling defects which would indicate pulmonary thromboemboli. There is no evidence of dissection or aneurysm within the thoracic aorta. Heart size appears normal. There is no evidence pericardial fluid or pleural fluid. There is generalized hepatic steatosis. On lung window settings the pulmonary vasculature appears of normal size and there is no evidence of fluid within the interlobular septi. There are ground-glass infiltrates within both lungs with slight sparing of the right lower lobe. There is no evidence of pneumothorax or pneumomediastinum. IMPRESSION: No evidence of pulmonary thromboembolism, CHF or pneumothorax. Ground-glass infiltrates identified within the lungs. Findings are nonspecific but could reflect COVID-19 infection. Please note that all CT scans at this facility use dose modulation, iterative reconstruction, and/or weight-based dosing when appropriate to reduce radiation dose to as low as reasonably achievable. Dictated by Ruslan Lai MD @ Sep 21 2019 12:22PM Signed by Dr. Ruslan Lai @ Sep 21 2019 12:27PM
[2019-09-21 13:13] VITALS: BP 112/83; PULSE 90
== END 2019-09-21 13:00 | disposition home or self-care (01) ==
LOC: MW.ED 10:20
DX: R06.02 Shortness of breath (principal); Z88.0 Allergy status to penicillin
CPT/HCPCS: 36415; 71275; 80053; 83880; 84484; 85025; 93005; 99285; A9270; J7030; Q9967; 99284

== ENCOUNTER 2019-10-21 13:22 | Emergency (ER) | payer SELFPAY ==
[2019-10-21] MEDS ORDERED: Sodium Chloride 0.9% 10 ML Syringe FLUSH PRN (13:31)
[2019-10-21] MEDS ORDERED: Sodium Chloride 0.9% 2.5 ML Syringe FLUSH PRN (13:31)
[2019-10-21] MEDS ORDERED: Sodium Chloride 0.9% 1,000 ML IV ONE (13:31)
--- NOTE | 2019-10-21 13:49 | EDM.PDOC ---
ED HPI GENERAL MEDICAL PROBLEM - General Chief Complaint: Gastrointestinal Problem Stated Complaint: YELLOW, PAIN, VOMITTING Time Seen by Provider: 10/21/19 13:28 Source of Information: Reports: Patient History Limitations: Reports: No Limitations - History of Present Illness INITIAL COMMENTS - FREE TEXT/NARRATIVE: 48-year-old female presents with worsening generalized malaise for 2 months. Associated with shortness of breath, WHYTE, dry cough, subjective fevers and chills, generalized malaise, 1 month of nonbloody vomiting, anorexia, dizziness where she wants to pass out. She was previously told from the clinic that her liver enzymes were abnormal. She saw Dr. Mireles for her persistent tachycardia, she missed her appointment for her 2D echo 3 days ago, and currently has a zio patch monitor for further assessment. She denies chest pain, headache, diarrhea , myalgia. She admits to alcohol abuse but her last drink was 3 weeks ago. She denies IVDA, Tylenol use. She was seen in the clinic on 09/26 for similar symptoms and was prescribed Ativan prn. She was tested for COVID-19 4 times, results were all negative. Apparently she is been having 2 months of increasing shortness of breath. CT angio chest was performed on 09/21/2019 to rule out PE, however noting groundglass opacification. She was also prescribed prednisone on 09/26. She was referred to pulmonology and cardiology for possible pulmonary fibrosis. At that time she stated that she lives in a rental house which had mold. On 10/09/2019 she was seen again in the clinic, complaining of shortness of breath and tachycardia. At that time she demonstrated transaminitis, as well as low albumin and hyperbilirubinemia. She also demonstrated a high ferritin, but demonstrated negative hepatitis panel and AMA antibody. She sees Dr. Gonzales at [place] for GI referral. ROS: A 10-point review of systems, other than pertinent positives and negatives as stated per HPI, is otherwise negative PHYSICAL EXAM General: AOx4, GCS = 15, No distress HEENT: dry mucous membrane Skin: jaundice Neck: supple, no meningismus, no Kernig or Brudzinski Cardiac: S1S2 tachycardia, zio patch left chest wall. Respiratory: CTAB, no crackles or rales, no wheezing Abdomen: Soft, focal RUQ ttp, no rebound or guarding, nondistended, no pulsatile mass. no fluid waves Back: nontender Musculoskeletal: NVI distally, no deformity Neuro: No focal deficits, asterixis MEDICAL DECISION MAKING: I reviewed the patients past medical records, lab and radiographic findings. I discussed the case with family members. My differential diagnosis included: Liver failure, CHF, alcohol abuse, electrolyte abnormality. Patient has focal tenderness in the right upper quadrant, she does not exhibit diffuse abdominal tenderness or fluid wave, I do not suspect spontaneous bacterial peritonitis. I assessed her liver enzymes, her direct bili is significantly increased from her baseline. Her MELD score is 33, giving her 52.6% 3 month mortality. She is covered with broad spectrum abx. 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: Musculoskeletal History: Reports: Fracture Other Musculoskeletal History: bilateral broken elbows Neurological History: Reports: Brain Injury Psychiatric History: Reports: Anxiety, Depression Endocrine/Metabolic History: Reports: None Insulin Pump Model and Groover Operator: N/A Hematologic History: Reports: None Immunologic History: Reports: None Oncologic (Cancer) History: Reports: None Dermatologic History: Reports: None - Infectious Disease History Infectious Disease History: Reports: Chicken Pox - Past Surgical History Head Surgeries/Procedures: Reports: None HEENT Surgical History: Reports: Adenoidectomy, Tonsillectomy GI Surgical History: Reports: Appendectomy, Cholecystectomy Female Surgical History: Reports: Breast Biopsy, Hysterectomy, Tubal Ligation Musculoskeletal Surgical History: Reports: Shoulder Surgery, Other (See Below) Other Musculoskeletal Surgeries/Procedures:: Bilateral knee surgery Social & Family History - Family History Family Medical History: Noncontributory - Tobacco Use Smoking Status *Q: Never Smoker - Caffeine Use Caffeine Use: Reports: None Caffeine Use Comment: 2 cups/day - Alcohol Use Days Per Week of Alcohol Use: 7 Number of Drinks Per Day: 3 Total Drinks Per Week: 21 - Recreational Drug Use Recreational Drug Use: No ED ROS GENERAL - Review of Systems Review Of Systems: See Below (see dictation) ED EXAM, GENERAL - Physical Exam Exam: See Below (see dictation) EKG INTERPRETATION EKG Interpretation Comments: 130 Bpm, NSR, normal QRS interval, no STEMI. EKG and rhythm strip interpreted by me at 1323 Course - Vital Signs Last Recorded V/S: Last Vital Signs Temp 97 F 10/21/19 13:32 Pulse 118 H 10/21/19 15:41 Resp 18 10/21/19 13:32 BP 111/76 10/21/19 15:41 Pulse Ox 93 L 10/21/19 15:41 - Orders/Labs/Meds Orders: Active Orders 24 hr Category Date Time Status EKG 12 Lead [EKG Documentation Completion] [RC] ROUTINE Care 10/21/19 13:34 Active AFP, SERUM, TUMOR MARKER [REF] Stat Lab 10/21/19 14:53 Ordered Blood Alcohol [ETHANOL BLOOD MEDICAL] [CHEM] Stat Lab 10/21/19 13:29 Results COMPREHENSIVE METABOLIC PN,CMP [CHEM] Stat Lab 10/21/19 13:29 Results CULTURE BLOOD [BC] Stat Lab 10/21/19 14:38 Ordered CULTURE BLOOD [BC] Stat Lab 10/21/19 14:38 Ordered FERRITIN [CHEM] Stat Lab 10/21/19 15:04 Ordered GAMMA GLUTAMYL TRANSFERASE,GGT [CHEM] Stat Lab 10/21/19 14:53 Ordered LACTIC ACID,WHOLE BLOOD [BG] Stat Lab 10/21/19 14:38 Ordered LIPASE [CHEM] Stat Lab 10/21/19 13:29 Results T4 FREE [CHEM] Stat Lab 10/21/19 13:29 Results TROPONIN I [CHEM] Stat Lab 10/21/19 13:29 Results TSH [CHEM] Stat Lab 10/21/19 13:29 Results UA RFX CYRIL AND CULT IF INDIC [URIN] Stat Lab 10/21/19 13:31 Ordered Levofloxacin/Dextrose 5%-Water [Levaquin in D5W 750 MG/ Med 10/21/19 15:09 Active 150 ML] 750 mg Premix Bag 1 bag IV ONETIME Sodium Chloride 0.9% [Saline Flush] Med 10/21/19 13:31 Active 10 ml FLUSH ASDIRECTED PRN Sodium Chloride 0.9% [Saline Flush] Med 10/21/19 13:31 Active 2.5 ml FLUSH ASDIRECTED PRN Vancomycin Med 10/21/19 15:15 Active 938.94 mg IV Q12H Blood Culture x2 Reflex Set [OM.PC] Stat Oth 10/21/19 14:38 Ordered Saline Lock Insert [OM.PC] Stat Oth 10/21/19 13:31 Ordered Medication Orders Levofloxacin/Dextrose 750 mg/ (Premix) 150 mls @ 100 mls/hr IV ONETIME ONE Stop: 10/21/19 16:38 Sodium Chloride (Saline Flush) 10 ml FLUSH ASDIRECTED PRN PRN Reason: Keep Vein Open Sodium Chloride (Saline Flush) 2.5 ml FLUSH ASDIRECTED PRN PRN Reason: Keep Vein Open Vancomycin HCl (Vancomycin) 938.94 mg 15 mg/kg (938.94 mg) IV Q12H PENDING SALE TO [facility] Labs: Laboratory Tests 10/21/19 10/21/19 10/21/19 Range/Units 13:29 13:29 13:29 WBC 20.20 H (4.0-11.0) K/uL RBC 3.09 L (4.30-5.90) M/uL Hgb 11.3 L (12.0-16.0) g/dL Hct 32.3 L (36.0-46.0) % MCV 104.5 H (80.0-98.0) fL MCH 36.6 H (27.0-32.0) pg MCHC 35.0 (31.0-37.0) g/dL RDW Std Deviation 58.2 (28.0-62.0) fl RDW Coeff of Valorie 15 (11.0-15.0) % Plt Count 251 (150-400) K/uL MPV 12.30 H (7.40-12.00) fL Add Manual Diff YES Neutrophils % (Manual) 79 (48.0-80.0) % Band Neutrophils % 5 % Lymphocytes % (Manual) 6 L (16.0-40.0) % Monocytes % (Manual) 10 (0.0-15.0) % Nucleated RBC % 0.8 /100WBC Absolute Seg Neuts 16.0 H (1.4-5.7) Band Neutrophils # 1.0 Lymphocytes # (Manual) 1.2 (0.6-2.4) Monocytes # (Manual) 2.0 H (0.0-0.8) Nucleated RBCs # 0 K/uL Polychromasia 1+ SLIGHT Poikilocytosis 2+ MODERATE Target Cells 2+ MODERATE INR Sodium 120 L (136-145) mmol/L Potassium 2.7 L (3.5-5.1) mmol/L Chloride 74 L (98-107) mmol/L Carbon Dioxide 26.9 (21.0-32.0) mmol/L BUN 13 (7.0-18.0) mg/dL Creatinine 1.2 H (0.6-1.0) mg/dL Est Cr Clr Drug Dosing 56.65 mL/min Estimated GFR (MDRD) 47.9 ml/min Glucose 124 H (74-106) mg/dL Calcium 8.0 L (8.5-10.1) mg/dL Total Bilirubin 35.4 H (0.2-1.0) mg/dL Direct Bilirubin (0.0-0.5) mg/dL Indirect Bilirubin AST 214 H (15-37) IU/L ALT 38 (14-63) IU/L Alkaline Phosphatase 143 H (46-116) U/L Ammonia 60 H (19-54) ug/dL Troponin I < 0.050 (0.000-0.056) ng/mL B-Natriuretic Peptide (<100) PG/ML Total Protein 7.3 (6.4-8.2) g/dL Albumin 2.5 L (3.4-5.0) g/dL Globulin 4.8 H (2.6-4.0) g/dL Albumin/Globulin Ratio 0.5 L (0.9-1.6) Lipase 192 (73-393) U/L TSH 3rd Generation 1.89 (0.36-3.74) uIU/mL Ethyl Alcohol 4 mg/dL 10/21/19 10/21/19 10/21/19 Range/Units 13:29 13:29 13:29 WBC (4.0-11.0) K/uL RBC (4.30-5.90) M/uL Hgb (12.0-16.0) g/dL Hct (36.0-46.0) % MCV (80.0-98.0) fL MCH (27.0-32.0) pg MCHC (31.0-37.0) g/dL RDW Std Deviation (28.0-62.0) fl RDW Coeff of Valorie (11.0-15.0) % Plt Count (150-400) K/uL MPV (7.40-12.00) fL Add Manual Diff Neutrophils % (Manual) (48.0-80.0) % Band Neutrophils % % Lymphocytes % (Manual) (16.0-40.0) % Monocytes % (Manual) (0.0-15.0) % Nucleated RBC % /100WBC Absolute Seg Neuts (1.4-5.7) Band Neutrophils # Lymphocytes # (Manual) (0.6-2.4) Monocytes # (Manual) (0.0-0.8) Nucleated RBCs # K/uL Polychromasia Poikilocytosis Target Cells INR 1.83 Sodium (136-145) mmol/L Potassium (3.5-5.1) mmol/L Chloride (98-107) mmol/L Carbon Dioxide (21.0-32.0) mmol/L BUN (7.0-18.0) mg/dL Creatinine (0.6-1.0) mg/dL Est Cr Clr Drug Dosing mL/min Estimated GFR (MDRD) ml/min Glucose (74-106) mg/dL Calcium (8.5-10.1) mg/dL Total Bilirubin 33.5 H (0.2-1.0) mg/dL Direct Bilirubin 26.30 H (0.0-0.5) mg/dL Indirect Bilirubin 7.20 AST (15-37) IU/L ALT (14-63) IU/L Alkaline Phosphatase (46-116) U/L Ammonia (19-54) ug/dL Troponin I (0.000-0.056) ng/mL B-Natriuretic Peptide 24 (<100) PG/ML Total Protein (6.4-8.2) g/dL Albumin (3.4-5.0) g/dL Globulin (2.6-4.0) g/dL Albumin/Globulin Ratio (0.9-1.6) Lipase (73-393) U/L TSH 3rd Generation (0.36-3.74) uIU/mL Ethyl Alcohol mg/dL Meds: Medications Generic Name Dose Route Start Last Admin Trade Name Freq PRN Reason Stop Dose Admin Levofloxacin/Dextrose 750 mg/ 150 mls @ 100 mls/hr 10/21/19 15:09 Premix IV 10/21/19 16:38 ONETIME ONE Sodium Chloride 10 ml 10/21/19 13:31 Saline Flush FLUSH ASDIRECTED PRN Keep Vein Open Sodium Chloride 2.5 ml 10/21/19 13:31 Saline Flush FLUSH ASDIRECTED PRN Keep Vein Open Vancomycin HCl 938.94 mg 10/21/19 15:15 Vancomycin 15 mg/kg (938.94 mg) IV Q12H JUSTEN Discontinued Medications Generic Name Dose Route Start Last Admin Trade Name Freq PRN Reason Stop Dose Admin Sodium Chloride 1,000 mls @ 999 mls/hr 10/21/19 13:31 10/21/19 13:45 Normal Saline IV 10/21/19 14:31 999 mls/hr BOLUS ONE Administration - Re-Assessments/Exams Free Text/Narrative Re-Assessment/Exam: 10/21/19 15:05 case discussed with FP resident, will collaborate with attending and touch base with me. 10/21/19 16:00 the hospitalist recommended transfer to outside facility due to need for higher level of care not available at this facility, and the need for toy consultant services unavailable at this facility. Any emergency conditions have been stabilized to the ability of the ED prior to the transfer. Case was discussed with transfer center and transfer arranged to outside facility/higher level of care. He is discussed with Dr. Jacoby Deleon, will accept transfer at [facility]. Departure - Departure Time of Disposition: 16:00 Disposition: DC/Tfer to Other 70 Condition: Fair Clinical Impression: Hyponatremia, Hyperkalemia, ESRF (end stage renal failure), Transaminitis, Sepsis - Discharge Information *PRESCRIPTION DRUG MONITORING PROGRAM REVIEWED*: Not Applicable *COPY OF PRESCRIPTION DRUG MONITORING REPORT IN PATIENT JEANCARLOS: Not Applicable Referrals: PCP,None [Primary Care Provider] - Forms: ED Department Discharge Critical Care Note - Critical Care Note Total Time (mins): 40 Comments: Critical Care: The high probability of sudden, clinically significant deterioration in the patient's condition required the highest level of my preparedness to intervene urgently. The services I provided to this patient were to treat and/or prevent clinically significant deterioration. Services included the following: chart data review, reviewing nursing notes and/or old charts, documentation time, toy consultant collaboration regarding findings and treatment options, medication orders and management, direct patient care, vital sign assessments and ordering, interpreting and reviewing diagnostic studies/lab tests. Aggregate critical care time includes only time during which I was engaged in work directly related to the patient's care, as described above, whether at the bedside or elsewhere in the Emergency Department. It did not include time spent performing other reported procedures or the services of residents, students, nurses or physician assistants. Frequent interventions and/or frequent repeat evaluations were required as well as counseling and coordination of care regarding prognosis, treatments, and discussions with patient, staff and consultants. Critical Care (excluding other procedures): 40 minutes Sepsis Event Note - Evaluation Sepsis Screening Result: No Definite Risk - Focused Exam Vital Signs: Vital Signs Temp Pulse Resp BP Pulse Ox 10/21/19 15:41 118 H 111/76 93 L 10/21/19 15:11 118 H 117/79 92 L 10/21/19 14:11 116 H 120/86 94 L 10/21/19 13:32 97 F 124 H 18 109/58 L 94 L Date Exam was Performed: 10/21/19 Time Exam was Performed: 15:57 - My Orders Last 24 Hours: My Active Orders 10/21/19 13:29 Blood Alcohol [ETHANOL BLOOD MEDICAL] [CHEM] Stat COMPREHENSIVE METABOLIC PN,CMP [CHEM] Stat LIPASE [CHEM] Stat T4 FREE [CHEM] Stat TROPONIN I [CHEM] Stat TSH [CHEM] Stat 10/21/19 13:31 UA RFX CYRIL AND CULT IF INDIC [URIN] Stat Sodium Chloride 0.9% [Saline Flush] 10 ml FLUSH ASDIRECTED PRN Sodium Chloride 0.9% [Saline Flush] 2.5 ml FLUSH ASDIRECTED PRN Saline Lock Insert [OM.PC] Stat 10/21/19 13:34 EKG 12 Lead [EKG Documentation Completion] [RC] ROUTINE 10/21/19 14:38 CULTURE BLOOD [BC] Stat CULTURE BLOOD [BC] Stat LACTIC ACID,WHOLE BLOOD [BG] Stat Blood Culture x2 Reflex Set [OM.PC] Stat 10/21/19 14:53 AFP, SERUM, TUMOR MARKER [REF] Stat GAMMA GLUTAMYL TRANSFERASE,GGT [CHEM] Stat 10/21/19 15:04 FERRITIN [CHEM] Stat 10/21/19 15:09 Levofloxacin/Dextrose 5%-Water [Levaquin in D5W 750 MG/150 ML] 750 mg Premix Bag 1 bag IV ONETIME 10/21/19 15:15 Vancomycin 938.94 mg IV Q12H - Assessment/Plan Last 24 Hours: My Active Orders 10/21/19 13:29 Blood Alcohol [ETHANOL BLOOD MEDICAL] [CHEM] Stat COMPREHENSIVE METABOLIC PN,CMP [CHEM] Stat LIPASE [CHEM] Stat T4 FREE [CHEM] Stat TROPONIN I [CHEM] Stat TSH [CHEM] Stat 10/21/19 13:31 UA RFX CYRIL AND CULT IF INDIC [URIN] Stat Sodium Chloride 0.9% [Saline Flush] 10 ml FLUSH ASDIRECTED PRN Sodium Chloride 0.9% [Saline Flush] 2.5 ml FLUSH ASDIRECTED PRN Saline Lock Insert [OM.PC] Stat 10/21/19 13:34 EKG 12 Lead [EKG Documentation Completion] [RC] ROUTINE 10/21/19 14:38 CULTURE BLOOD [BC] Stat CULTURE BLOOD [BC] Stat LACTIC ACID,WHOLE BLOOD [BG] Stat Blood Culture x2 Reflex Set [OM.PC] Stat 10/21/19 14:53 AFP, SERUM, TUMOR MARKER [REF] Stat GAMMA GLUTAMYL TRANSFERASE,GGT [CHEM] Stat 10/21/19 15:04 FERRITIN [CHEM] Stat 10/21/19 15:09 Levofloxacin/Dextrose 5%-Water [Levaquin in D5W 750 MG/150 ML] 750 mg Premix Bag 1 bag IV ONETIME 10/21/19 15:15 Vancomycin 938.94 mg IV Q12H
[2019-10-21 14:35] LABS: BILIRUBIN INDIRECT 7.2
[2019-10-21 14:47] LABS: BLOOD UREA NITROGEN,BUN 13 mg/dL (7.0-18.0); CARBON DIOXIDE,CO2 26.9 mmol/L (21.0-32.0); CHLORIDE,CL 74 mmol/L (98-107); GLUCOSE RANDOM 124 mg/dL (74-106); LIPASE 192 U/L (73-393); POTASSIUM,K 2.7 mmol/L (3.5-5.1)
[2019-10-21 14:49] LABS: SODIUM,NA 120 mmol/L (136-145)
[2019-10-21] MEDS ORDERED: Levofloxacin/Dextrose 5%-Water 750 MG in Premix Bag 1 BAG IV ONE (15:09)
[2019-10-21] MEDS ORDERED: Vancomycin 500 MG SDV IV SCH (15:15)
--- NOTE | 2019-10-21 15:42 | US ---
Limited abdominal ultrasound: Multiple real-time images of the upper right abdomen were obtained. Comparison: Previous abdominal ultrasound of 09/05/19. Liver is very echogenic. Pancreas not well seen due to bowel gas. Right kidney shows no hydronephrosis or mass. Right kidney has a length of 10.3 cm. Previous cholecystectomy is noted. No biliary duct dilatation is appreciated. Impression: 1. Echogenic liver compatible with fatty infiltration. 2. Previous cholecystectomy. 3. No additional abnormality seen on right upper quadrant abdominal ultrasound. Diagnostic code #3 This report was dictated in MDT
[2019-10-21] MEDS ORDERED: Potassium Chloride 10% 20 MEQ/15 ML Soln 30 ML UD Cup PO ONE (16:03)
[2019-10-21] MEDS ORDERED: LORazepam 2 MG/ML SDV IVPUSH ONE (19:12)
[2019-10-22 01:57] VITALS: BP 104/69; PULSE 113
== END 2019-10-21 20:26 | disposition other institution (70) ==
LOC: MW.ED 13:22
DX: A41.9 Sepsis, unspecified organism (principal); E87.1 Hypo-osmolality and hyponatremia; E87.5 Hyperkalemia; N18.6 End stage renal disease; R74.0 Nonspecific elevation of levels of transaminase and lactic acid dehydrogenase [LDH]; Z88.0 Allergy status to penicillin
CPT/HCPCS: 36415; 76705; 80053; 80307; 81001; 82105; 82140; 82247; 82248; 82728; 82977; 83605; 83690; 83880; 84439; 84443; 84484; 85025; 85610; 87040; 87086; 93005; 96365; 96367; 96375; 99291; A9270; J1956; J2060; J3370; J7030; J7050; 99285